=== PATIENT | male | born 1965 | race Caucasian/White ===

== ENCOUNTER → 2025-04-27 | Outpatient (CLI) | payer MEDICAID, SELFPAY ==
--- NOTE | 2025-04-27 16:00 | XR_ITS ---
Examination: MRI lumbar spine without contrast Date and time of exam: April 27, 2025, 1646 hours Comparison September 08, 2015 INDICATIONS: Low back pain 7 years frequent falls 2 years ago 3 mm central lumbar disc bulge L1-L2 no disc protrusion TECHNIQUE: Multiple axial sagittal MR images lumbar spine FINDINGS: Mild chronic compressions L5, L4, L3 T12, T11 No acute lumbar fracture Diffuse lumbar degenerative disc disease, advanced L3-L4, L4-L5 Moderate lumbar spondylosis No spondylolisthesis L5-S1 4 mm central 8 mm left foraminal 6 mm right foraminal disc bulges producing severe bilateral L5 ganglionic compression L4-L5 5 mm central 4 mm right foraminal disc bulge producing mild right L4 ganglionic impression L3-L4 4 mm central lumbar disc bulge, 5 mm left foraminal disc bulge producing mild left L3 ganglionic compression L2-L3 no disc protrusion L1-L2 no disc protrusion Impression: L5-S1 4 mm central and bilateral foraminal disc bulges producing severe bilateral L5 ganglionic compression L4-L5 5 mm central 4 mm right foraminal disc bulge mild right L4 ganglionic compression L3-L4 4 mm central 5 mm left foraminal disc bulge producing mild left L3 ganglionic compression
== END | disposition home or self-care (01) ==
LOC: SMRI 15:47
PROVIDERS: PCP Nurse Practitioner Family; Referring Provider Nurse Practitioner Family; Visit Provider Nurse Practitioner Family
DX: M51.370 Other intervertebral disc degeneration, lumbosacral region with discogenic back pain only (principal); G95.29 Other cord compression
CPT/HCPCS: 72148

== ENCOUNTER 2025-08-05 09:40 | Day surgery (SDC) | payer MEDICAID, SELFPAY ==
[2025-08-04 14:24] VITALS: BMI 26.7
[2025-08-05] VITALS (9 sets, daily range): BP systolic 83–121; BP diastolic 59–80; PULSE 64–80; RESP 14–20; TEMP 36.7–36.8; O2SAT 93–96; BMI 26.4
[2025-08-05] MEDS: RINGERS LACTATED 500 ML 500 ML 20 ML IV (10:44)
[2025-08-05] MEDS: fentaNYL CIT INJ 50 mCg/ML AMP 2ML (ASD USE ONLY) IVP (10:44)
[2025-08-05] MEDS: MIDAZOLAM INJ 1 MG/ML VIAL 2 ML (ASD USE ONLY) 2 MG IVP (10:44)
[2025-08-05] MEDS: SIMETHICONE 40 MG/0.6 ML ORAL SYRINGE PO (10:53)
== END 2025-08-05 11:40 | disposition home or self-care (01) ==
PROVIDERS: PCP Physician Assistant; Referring Provider Internal Medicine Gastroenterology; Visit Provider Internal Medicine Gastroenterology
PROC: 0DBE8ZX Excision of Large Intestine, Via Natural or Artificial Opening Endoscopic, Diagnostic (ICD-10-PCS; CPT 45380; principal; 2025-08-05 11:15)
DX: D12.3 Benign neoplasm of transverse colon (principal); K52.9 Noninfective gastroenteritis and colitis, unspecified; K64.1 Second degree hemorrhoids; I10 Essential (primary) hypertension
CPT/HCPCS: 45380; 45385; A4649; J2250; J3010; J7120; A9270